=== PATIENT | female | born 1985 | race Caucasian/White ===

== ENCOUNTER 2020-03-11 21:58 | Emergency (ER) | payer OTHER ==
[~2020-03-11] VITALS: Ht 165.1 cm; Wt 86.6 kg
[2020-03-11 22:08] VITALS: BP 139/75
[2020-03-11] MEDS ORDERED: SULFAMETH/TRIMETH DS 800/160MG 1 TAB PO ONE (22:30)
[2020-03-11] MEDS ORDERED: PHENAZOPYRIDINE 100 MG TAB PO ONE (22:30)
--- NOTE | 2020-03-11 22:30 | NUR ---
34 Y/O FEMALE C/O BURNING UPON URINATION X 2 DAYS NOW. PT DENIES ANY CHANGES IN HER NORMAL ROUTINE. PT REPORTS CHANGE IN SMELL UPON URINATION. PT TOOK AZO OTC MEDICATION AT 8PM TONIGHT WITH NO RELIEF. DENIES N/V/D; SKIN IS PINK/WARM/DRY; AAOX4 WITH EVEN AND STEADY GAIT; HR EVEN AND REGULAR; PT DENIES ANY FEVER, CP, SOB, OR COUGH AT THIS TIME; PATIENT STATES PAIN OF 7/10 AT THIS TIME; VSS; PATIENT POSITIONED FOR COMFORT; HOB ELEVATED; BEDRAILS UP X1; BED DOWN AND LOCKED PMH: PT DENIES NKA
[2020-03-11] MEDS ORDERED: METOPROLOL 5 MG/5 ML VIAL IVP ONE (22:35)
[2020-03-11] MEDS ORDERED: cefTRIAXone 250 MG in LIDOCAINE MPF 1% 0.9 ML IM ONE (22:50)
[2020-03-11] MEDS ORDERED: AZITHROMYCIN 250 MG TAB PO ONE (22:50)
--- NOTE | 2020-03-11 22:50 | NUR ---
URINE SAMPLE PICKED UP FROM BEDSIDE BY LAB
[2020-03-11] MEDS ORDERED: cefTRIAXone 250 MG VIAL ONE (22:55)
[2020-03-11] MEDS ORDERED: LIDOCAINE MPF 1% 5 ML ONE (22:55)
[2020-03-11 23:08] LABS: APPEARANCE,URINE CLEAR (CLEAR); BILIRUBIN,URINE NEGATIVE (NEGATIVE); BLOOD, URINE 1+ (NEGATIVE); COLOR,URINE STRAW (YELLOW); LEUKOCYTE ESTERASE ,URINE 1+ (NEGATIVE); NITRITE, URINE NEGATIVE (NEGATIVE); UGLUCOSE NEGATIVE (NEGATIVE)
[2020-03-11 23:30] VITALS: BP 139/75
--- NOTE | 2020-03-11 23:30 | NUR ---
Patient discharged with v/s stable. Written and verbal after care instructions given and explained. Patient alert, oriented and verbalized understanding of instructions. Ambulatory with steady gait. All questions addressed prior to discharge. ID band removed. Patient advised to follow up with PMD. Rx of MOTRIN/PYRIDIUM/BACTRIM given. Patient educated on indication of medication including possible reaction and side effects. Opportunity to ask questions provided and answered.
[2020-03-11 23:34] LABS: RBC,URINE 0-5 /HPF (0-5); WBC,URINE 0-5 /HPF (0-5)
[2020-03-14 06:10] LABS: CHLAMYDIA TRACHOMATIS AMP DNA Negative (Negative)
== END 2020-03-11 23:30 | disposition home or self-care (01) ==
LOC: MED 21:58
DX: N39.0 Urinary tract infection, site not specified (principal); Z90.09 Acquired absence of other part of head and neck
CPT/HCPCS: 36415; 81001; 87086; 87491; 96372; 96374; 99284; J0696; J2001; 99283